=== PATIENT | female | born 1965 | race Two or more races ===

== ENCOUNTER → 2022-11-04 | Emergency (ER) | payer OTHER ==
[~2022-11-04] VITALS: Ht 160 cm; Wt 87.1 kg
== END | disposition home or self-care (01) ==
LOC: ER 19:25
DX: S09.8XXA Other specified injuries of head, initial encounter (principal); W18.39XA Other fall on same level, initial encounter; Y93.I9 Activity, other involving external motion; Y92.89 Other specified places as the place of occurrence of the external cause; Y99.8 Other external cause status; E03.8 Other specified hypothyroidism